=== PATIENT | female | born 1935 | race Caucasian/White ===

== ENCOUNTER → 2016-10-31 | Outpatient (CLI) | payer OTHER, MEDICARE ==
[~2016-10-31] MED LIST: BACTRIM DS TAB1 EACH PO; CIPROFLOXACIN500 M1 PO; CIPROFLOXACIN500 M3 PO; FLAGYL500 MG PO; GLIPIZIDE 5 MG T5 MG PO; GLIPIZIDE ER5 MG PO; GLUCOTROL5 MG PO; IMODIUM A-D1 MG/5 ML PO; IMODIUM ADVANC1 EAC1; LEVOXYL50 MCG PO; LISINOPRIL10 MG PO; LISINOPRIL20 MG PO; LOVASTAT40 PO; NORCO 5-325 TA1 EACH; NORCO 5-325 TA1 EACH PO
== END ==
LOC: ULTRA 12:33
DX: M79.89 Other specified soft tissue disorders (principal); M79.604 Pain in right leg

== ENCOUNTER → 2017-03-20 | Outpatient (CLI) | payer OTHER, MEDICARE | LOC: CAT 09:48 | DX: J47.9 Bronchiectasis, uncomplicated (principal); J84.10 Pulmonary fibrosis, unspecified; R06.00 Dyspnea, unspecified; R06.9 Unspecified abnormalities of breathing ==

== ENCOUNTER → 2017-11-06 | Outpatient (CLI) | payer OTHER, MEDICARE ==
[~2017-11-06] MED LIST changes: +ADVAIR HFA 230M12 GM INH; +ALBUTEROL2.5 MG/0.5 INH; +AMARYL4 MG PO; +AZITHROMYCIN 2250 MG PO; +B-12500 MCG PO; +BREO ELLIPTA 11 EACH INH; +CARDIZEM CD120 MG PO; +CEFUROXIME250 MG PO; +COLACE100 MG PO; +COUMADIN 2 MG TA2 M1 PO; +DEMADEX20 MG PO; +DOXYCYCLINE HYC50 MG PO; +ELIQUIS2.5 MG PO; +FOLIC ACID 1 MG1 MG PO; +IRON325 PO; +K-DUR10 MEQ PO; +KEFLEX500 M1 PO; +LASIX 20 MG TAB20 MG PO; +LASIX 40 MG TAB40 M1 PO; +LASIX 40 MG TAB40 M2 PO; +LIPITOR10 MG PO; +MELATONIN5 M1 PO; +MULTIVITAMINS1 EAC7 PO; +PREDNISONE 10 M10 MG PO; +PROTONIX40 M1 PO; +SPIRONOLACTONE25 M1 PO; +TRAMADOL 50 MG50 MG PO; +TYLENOL325 MG PO
== END ==
LOC: SLEEPLAB 10-30 10:15
DX: G47.33 Obstructive sleep apnea (adult) (pediatric) (principal); I49.9 Cardiac arrhythmia, unspecified

== ENCOUNTER → 2017-12-31 | Outpatient (CLI) | payer OTHER, MEDICARE | LOC: CAT 08:05 | DX: J84.10 Pulmonary fibrosis, unspecified (principal); K80.80 Other cholelithiasis without obstruction ==

== ENCOUNTER → 2018-01-09 | Outpatient (CLI) | payer OTHER, MEDICARE ==
[~2018-01-09] MED LIST changes: -ADVAIR HFA 230M12 GM INH; -ALBUTEROL2.5 MG/0.5 INH; -AMARYL4 MG PO; -AZITHROMYCIN 2250 MG PO; -B-12500 MCG PO; -BREO ELLIPTA 11 EACH INH; -CARDIZEM CD120 MG PO; -CEFUROXIME250 MG PO; -COLACE100 MG PO; -COUMADIN 2 MG TA2 M1 PO; -DEMADEX20 MG PO; -DOXYCYCLINE HYC50 MG PO; -ELIQUIS2.5 MG PO; -FOLIC ACID 1 MG1 MG PO; -IRON325 PO; -K-DUR10 MEQ PO; -KEFLEX500 M1 PO; -LASIX 20 MG TAB20 MG PO; -LASIX 40 MG TAB40 M1 PO; -LASIX 40 MG TAB40 M2 PO; -LIPITOR10 MG PO; -MELATONIN5 M1 PO; -MULTIVITAMINS1 EAC7 PO; -PREDNISONE 10 M10 MG PO; -PROTONIX40 M1 PO; -SPIRONOLACTONE25 M1 PO; -TRAMADOL 50 MG50 MG PO; -TYLENOL325 MG PO
--- NOTE | ~2018-01-09 | 2DMMODE ---
[facility] [place] [address] 2 D/M-MODE ECHOCARDIOGRAM Name: MARTHAMANPREET Blanco Room #: REG [facility]#: [id number] Admission: 01/09/18 Attend Phys: Suman Joseph Discharge: Date of : 31 Date of Service: 01/09/18 1119 Report #: [id number] THIS REPORT FOR: //name// APPROVED REPORT Study performed: 01/09/2018 09:16:00 EXAM: Comprehensive 2D, Doppler, and color-flow Echocardiogram Patient Location: Out-Patient Status: routine BSA: 1.93 HR: 60 bpm BP: 165/83 mmHg Rhythm: Pacemaker Other Information Study Quality: Adequate Indications Dyspnea Hx: DM, HLD 2D Dimensions RVDd: 33.48 mm LVEF(%): 61.52 (>50%) IVSd: 12.31 (7-11mm) LVOT Diam: 20.52 (18-24mm) LVDd: 43.78 mm PWd: 12.28 (7-11mm) Ascending Ao: 34.24 (22-36mm) LVDs: 29.41 (25-40mm) Aortic Root: 32.92 mm IVC: 29.00 mm Hollingsworth's LVEF: 61.52 % Volumes Left Atrial Volume (Systole) Single Plane 4CH: 75.60 mL Single Plane 2CH: 68.59 mL LA ESV Index: 41.00 mL/m2 Aortic Valve AoV Peak Agus.: 1.49 m/s AO Peak Gr.: 8.91 mmHg LVOT Max P.81 mmHg LVOT Max V: 0.98 m/s NENITA Vmax: 2.16 cm2 AI Vmax: 4.59 m/s AI [place]: 2.42 m/s2 AI PHT: 550.00 ms [facility] [address] 2 D/M-MODE ECHOCARDIOGRAM Name: MANPREET THOMAS Room #: [facility]#: [id number] Admission: 01/09/18 Attend Phys: Suman Joseph Discharge: Date of : 31 Date of Service: 01/09/18 1119 Report #: [id number] Mitral Valve E/A Ratio: 2.8 MV Decel. Time: 193.97 ms MV E Max Agus.: 1.01 m/s MV A Agus.: 0.36 m/s MV PHT: 56.25 ms IVRT: 87.66 ms Pulmonary Valve PV Peak Agus.: 0.88 m/s PV Peak Gr.: 3.12 mmHg Tricuspid Valve TR Peak Agus.: 3.85 m/s RAP Estimate: 10.00 mmHg TR Peak Gr.: 59.26 mmHg PA Pressure: 69.00 mmHg Left Ventricle The left ventricle is normal size. Mild concentric left ventricular hypertrophy. The left ventricular systolic function is normal. LVEF is 55-60%. The diastolic function is abnormal. Right Ventricle The right ventricle is normal size. The right ventricular systolic function is normal. Pacemaker lead is present in the right ventricle. Atria Left atrium is severely dilated. Right atrium is dilated. A pacemaker is seen in the right atrium consistent with history. Aortic Valve The Aortic valve is sclerotic. Mild aortic regurgitation. There is no aortic valvular stenosis. Mitral Valve There is mitral annular calcification. Mitral valve leaflets are thickened and calcified. Mild to moderate mitral regurgitation. No evidence of mitral valve stenosis. Tricuspid Valve The tricuspid valve is normal in structure. Moderate to severe tricuspid regurgitation. Estimated PAP 69 mmHg. Moderate to severe pulmonary hypertension. Pulmonic Valve The pulmonary valve is normal in structure. Trace pulmonic [facility] [address] [place] [address] 2 D/M-MODE ECHOCARDIOGRAM Name: MANPREET THOMAS [id number] Admission: 01/09/18 Attend Phys: Suman Joseph Discharge: Date of : 31 Date of Service: 01/09/18 1119 Report #: [id number] regurgitation. Great Vessels The aortic root is normal in size. The ascending aorta is normal in size. IVC is dilated and collapses 50% with inspiration. Pericardium There is no pericardial effusion. <Conclusion> The left ventricle is normal size. LVEF is 55-60%. Left atrium is severely dilated. Pacemaker lead is present in the right ventricle. Right atrium is dilated. A pacemaker is seen in the right atrium consistent with history. The Aortic valve is sclerotic. Mild aortic regurgitation. There is mitral annular calcification. Mitral valve leaflets are thickened and calcified. Mild to moderate mitral regurgitation. The tricuspid valve is normal in structure. Moderate to severe tricuspid regurgitation. Estimated PAP 69 mmHg. Moderate to severe pulmonary hypertension. The pulmonary valve is normal in structure. Trace pulmonic regurgitation. There is no pericardial effusion. <ELECTRONICALLY SIGNED> By: Toni Mchugh MD 01/09/18 1119 1119 1119 Toni Mchugh MD /INF
== END ==
LOC: ULTRA 09:00 → CV 09:00
DX: I08.3 Combined rheumatic disorders of mitral, aortic and tricuspid valves (principal); M71.21 Synovial cyst of popliteal space [Baker], right knee; I82.4Y3 Acute embolism and thrombosis of unspecified deep veins of proximal lower extremity, bilateral; R06.02 Shortness of breath; M79.89 Other specified soft tissue disorders; E11.9 Type 2 diabetes mellitus without complications; E78.5 Hyperlipidemia, unspecified

== ENCOUNTER → 2018-01-10 | Outpatient (CLI) | payer OTHER, MEDICARE | LOC: NUC 10:55 | DX: I82.4Y3 Acute embolism and thrombosis of unspecified deep veins of proximal lower extremity, bilateral (principal); R79.89 Other specified abnormal findings of blood chemistry; R06.02 Shortness of breath ==

== ENCOUNTER 2018-02-05 15:17 | Inpatient (IN) | payer OTHER, MEDICARE ==
[~2018-02-05] VITALS: Ht 160 cm; Wt 90.7 kg
--- NOTE | ~2018-02-05 | HC ---
[facility] [place] [address] CONSULTATION Name: MANPREET THOMAS Room #: 407-P ADM IN M.R.#: [id number] Admission: 02/05/18 Attend Phys: Manfred Bran MD Discharge: Date of : 33 Report #: [id number] THIS REPORT FOR: //name// CC: Manfred Marques MD DATE OF SERVICE: 02/06/2018 TYPE OF REPORT: Cardiology consultation. HISTORY OF PRESENT ILLNESS: The patient is an 82-year-old single white female who I was asked to see in the hospital today after she complained of shortness of breath. The patient has an extensive past medical history. The patient has a long history of hypertension, hyperlipidemia and diabetes. She was a previous smoker. The patient has a history of symptomatic bradycardia and had a pacemaker inserted by Dr. Darnell back in 2011. Lately, she has been followed by my partner, Dr. Armstrong. Nuclear stress test back in 2011 showed no evidence of ischemia. The patient has a history of pulmonary fibrosis and has been followed by Dr. Ratliff. She is on home oxygen. Recently, the patient had increasing shortness of breath and edema. She was sent to the Emergency Room yesterday with increasing shortness of breath and edema. She had seen Dr. Marques earlier today who sent her to the hospital. She was admitted for further evaluation and treatment. She denies any recent fever or cough. She does have occasional chest heaviness. She notes occasional episodes where her heart race, but she has had no syncope. MEDICATIONS: Consist of aspirin, glipizide, Synthroid, lisinopril, lovastatin and aspirin 81 mg a day. ALLERGIES: She has a previous intolerance to MOBIC. FAMILY HISTORY: Her brother had heart disease. SOCIAL HISTORY: She is , lives in [place], [place]. Quit smoking years ago, rarely drinks alcohol. REVIEW OF SYSTEMS: She had a previous right carotid endarterectomy and is followed by Dr. Thompson. However, she states that followup Doppler showed the right carotid was occluded. She has a history of pulmonary fibrosis and sees Dr. Ratliff. She has had pulmonary hypertension. No history of peptic ulcer disease. She has a history of breast cancer, had a mastectomy followed by radiation therapy and chemotherapy years ago. She has had previous hemicolectomy for diverticular disease. She has no chronic skin condition. No psychiatric illness. [facility] [address] [place] [address] CONSULTATION Name: MANPREET THOMAS Room #: 407-P [facility] IN [facility].#: [id number] Admission: 02/05/18 Attend Phys: Manfred Bran MD Discharge: Date of : 33 Report #: [id number] PHYSICAL EXAMINATION: GENERAL: Revealed an elderly female who appeared in no acute distress. VITAL SIGNS: Blood pressure is 140/90, pulse 70 and she is afebrile. HEENT: She was anicteric. Conjunctivae pink. Mucous membranes moist. NECK: Veins do not appear distended. No carotid bruits. Neck supple. CHEST: coarse breath sounds bilaterally. CARDIOVASCULAR: Regular rhythm, grade 2 systolic ejection murmur. ABDOMEN: Soft. EXTREMITIES: Had 1+ edema below the mid tibial area. Dorsalis pedis pulse 1+ bilaterally. SKIN: Cool and dry. NEUROLOGICAL: Nonfocal. LYMPHATIC: No adenopathy. MUSCULOSKELETAL: No joint effusion. DIAGNOSTIC DATA: Her ECG last night in the Emergency Room appears to show atrial fibrillation with occasional ventricular paced beat and nonspecific T-wave changes. Previous ECG from 2011 showed an AV sequentially paced rhythm. Her workup so far; she had an echocardiogram today that showed an ejection fraction of 60; left ventricular hypertrophy; biatrial enlargement; mild aortic, moderate mitral and moderate tricuspid insufficiency and pulmonary artery pressure 65 mmHg. Workup, she had a chest x-ray on admission that showed cardiomegaly, elevated right hemidiaphragm and bilateral interstitial lung markings are increased. Venous duplex scan of her legs showed no DVT. She had a previous CT scan of the head without contrast back in 2011 that showed atrophy. Her last CT scan of the chest using high resolution was done in December that showed evidence of interstitial fibrotic changes and large gallstone. LABORATORY DATA: Her lab work: Her sodium was 134, potassium 4.3 and creatinine 1.2. Liver function studies were normal. Troponin 0.04. Her white blood cell count 6.7 and hemoglobin 11.5. IMPRESSION AND RECOMMENDATIONS: 1. Atrial fibrillation. Rate controlled. I would not recommend attempts at cardioversion. I would recommend anticoagulation with either a new oral anticoagulant or warfarin. 2. Sick sinus syndrome. The patient predominantly ventricular paced at this time. 3. Pulmonary fibrosis. The patient will be followed by Pulmonary. 4. Cor pulmonale with dilated right heart and pulmonary hypertension. I would recommend Lasix. 5. Hypertension. The patient has been on an angiotensin-converting enzyme inhibitor. 6. Diabetes. 7. Hyperlipidemia. The patient is on a statin drug. 8. Occluded right carotid artery. Asymptomatic at this time. [facility] [address] [place] [address] CONSULTATION Name: MANPREET THOMAS Room #: 407-P ADM IN M.R.#: [id number] Admission: 02/05/18 Attend Phys: Manfred Bran MD Discharge: Date of : 33 Report #: [id number] 9. History of breast cancer with previous radiation therapy. 10. Previous placement of a dual-chamber pacemaker. I would consider reprogramming the pacemaker to a single-chamber mode. <ELECTRONICALLY SIGNED> By: Valentin Stern MD, FACC 02/07/18 0831 1643 0022 Valentin Stern MD, FACC /nt
--- NOTE | ~2018-02-05 | 2DMMODE ---
[facility] [address] [place] [address] 2 D/M-MODE ECHOCARDIOGRAM Name: MARTHAMANPREET J Room #: 407-P ADM IN M.R.#: [id number] Admission: 02/05/18 Attend Phys: Manfred Bran MD Discharge: Date of : 31 Date of Service: 02/06/18 1044 Report #: [id number] THIS REPORT FOR: //name// APPROVED REPORT Study performed: 02/06/2018 09:05:38 EXAM: Comprehensive 2D, Doppler, and color-flow Echocardiogram Patient Location: Echo lab Room #: [facility] Status: routine BSA: 1.91 HR: 62 bpm BP: 175/78 mmHg Other Information Study Quality: Adequate Indications Dyspnea Pacemaker 2D Dimensions RVDd: 39.44 mm LVEF(%): 65.02 (>50%) IVSd: 11.48 (7-11mm) LVOT Diam: 22.33 (18-24mm) LVDd: 42.16 mm PWd: 11.18 (7-11mm) Ascending Ao: 31.22 (22-36mm) LVDs: 27.29 (25-40mm) Aortic Root: 31.59 mm IVC: 28.00 mm Hollingsworth's LVEF: 65.02 % Volumes Left Atrial Volume (Systole) Single Plane 4CH: 111.10 mL Single Plane 2CH: 74.34 mL LA ESV Index: 52.00 mL/m2 Aortic Valve AoV Peak Agus.: 1.39 m/s AO Peak Gr.: 7.77 mmHg LVOT Max P.69 mmHg LVOT Max V: 0.96 m/s NENITA Vmax: 2.70 cm2 AI Vmax: 3.34 m/s AI [place]: 1.45 m/s2 AI PHT: 670.66 ms [facility] [place] [address] 2 D/M-MODE ECHOCARDIOGRAM Name: MARTHAMANPREET Reji Room #: 407-P [facility] IN M.R.#: [id number] Admission: 02/05/18 Attend Phys: Manfred Bran MD Discharge: Date of : 33 Date of Service: 02/06/18 1044 Report #: [id number] Mitral Valve MV Decel. Time: 158.62 ms MV E Max Agus.: 1.05 m/s Pulmonary Valve PV Peak Agus.: 0.95 m/s PV Peak Gr.: 3.62 mmHg Tricuspid Valve TR Peak Agus.: 3.53 m/s TR Peak Gr.: 49.85 mmHg PA Pressure: 65.00 mmHg Left Ventricle The left ventricle is normal size. There is normal LV segmental wall motion. Mild concentric left ventricular hypertrophy. The left ventricular systolic function is normal. The left ventricular ejection fraction is within the normal range. LVEF is 60-65%. This study is not technically sufficient to allow evaluation of the LV diastolic function. Right Ventricle Right ventricle is mildly dilated. Right ventricle is mildly hypokinetic. Atria Left atrium is moderately dilated. Right atrium is moderately dilated. Aortic Valve The aortic valve is normal in structure. Aortic valve is calcified. Mild aortic regurgitation. There is no aortic valvular stenosis. Mitral Valve The mitral valve is normal in structure. Mild to moderate mitral regurgitation. No evidence of mitral valve stenosis. Tricuspid Valve The tricuspid valve is normal in structure. There is moderate to severe tricuspid regurgitation. Estimated PAP 65 mmHg. There is moderate pulmonary hypertension. Pulmonic Valve The pulmonary valve is normal in structure. Trace pulmonic regurgitation. [facility] [address] [place] [address] 2 D/M-MODE ECHOCARDIOGRAM Name: MANPREET THOMAS Reji Room #: 407-P [facility] IN ..#: [id number] Admission: 02/05/18 Attend Phys: Manfred Bran MD Discharge: Date of : 31 Date of Service: 02/06/18 1044 Report #: [id number] Great Vessels The aortic root is normal in size. The inferior vena cava is dilated with no inspiratory collapse. Pericardium There is no pericardial effusion. <Conclusion> Mild concentric left ventricular hypertrophy. LVEF is 60-65%. Right ventricle is mildly dilated. Left atrium is moderately dilated. Right atrium is moderately dilated. Mild aortic regurgitation. Mild to moderate mitral regurgitation. There is moderate to severe tricuspid regurgitation. Estimated PAP 65 mmHg. There is moderate pulmonary hypertension. <ELECTRONICALLY SIGNED> By: Valentin Stern MD, [facility] 02/06/18 1044 1044 1044 Valentin Stern MD, FACC /INF
--- NOTE | ~2018-02-05 | EKG ---
[facility] [place] [address] ELECTROCARDIOGRAM REPORT Name: MARTHAMANPREET [id number] Admission: 02/05/18 Attend Phys: Discharge: Date of : 33 Report #: [id number] THIS REPORT FOR: //name// [facility] ED Test Date: 2018-02-05 Test Time: 16:46:06 Pat Name: MANPREET THOMAS Department: Room: Gender: F Intelligence Operations: MZOOK : 1935 Requested By: Rafaela Salinas Order Number: [id number] MD: Eliot Vivar Measurements Intervals [place] Rate: 60 P: DE: QRS: -35 QRSD: 113 T: 229 QT: 472 QTc: 472 Interpretive Statements Afib/flut and V-paced complexes Borderline IVCD with LAD Borderline low voltage, extremity leads Nonspecific ST and T wave abnormality Compared to ECG 05/07/2012 12:20:59 AV dual-paced complex(es) or rhythm no longer present Electronically Signed On 02-05-2018 17:12:31 CDT by Eliot Vivar [email or web address] <ELECTRONICALLY SIGNED> By: Eliot Vivar MD, [facility] 02/05/18 1712 1646 1646 Eliot Vivar MD, [facility] /EPI
[2018-02-05 15:19] VITALS: BP 151/61
[2018-02-05 17:23] LABS: HEMATOCRIT 34.3 % (37.0-47.0); HEMOGLOBIN 11.3 gm/dL (12.0-15.0); MCH 31.2 pg (26.0-34.0); MCV 94.5 fL (80.0-100.0); PLATELET COUNT 204 thou/uL (150-400); RBC 3.63 mil/uL (4.20-5.00); RDW 15.7 % (10.5-14.5); WBC 6.6 thou/uL (4.0-11.0)
[2018-02-05 17:31] LABS: ANION GAP 13 mmol/L (7-16); BUN 23 mg/dL (7-18); CALCIUM 9.3 mg/dL (8.5-10.1); CHLORIDE 101 mmol/L (98-107); CO2 22 mmol/L (21-32); CREATININE 1.4 mg/dL (0.6-1.0); GLUCOSE 135 mg/dL (74-106); POTASSIUM 4.3 mmol/L (3.5-5.1); SODIUM 136 mmol/L (136-145)
[2018-02-05 17:40] LABS: TROPONIN-I < 0.04 ng/mL (<0.06)
[2018-02-05 18:03] LABS: ANISOCYTOSIS 1+; OVALOCYTES OCCASIONAL
[2018-02-05 19:31] VITALS: BP 158/74
[2018-02-05] MEDS ORDERED: BREO ELLIPTA 11 EACH INH (19:37)
[2018-02-05 19:54] LABS: ALBUMIN 3.2 g/dL (3.4-5.0); DIRECT BILIRUBIN 0.3 mg/dL (<0.1-0.3); TOTAL BILIRUBIN 0.8 mg/dL (<0.1-1.0); TOTAL PROTEIN 6.7 g/dL (6.4-8.2)
[2018-02-05 20:02] LABS: D-DIMER 2.38 ug/mLFEU (0.19-0.50); INR 1.1; PROTIME 10.8 Seconds (9.3-11.4)
[2018-02-05 21:11] VITALS: BP 154/90
[2018-02-05 21:57] LABS: BE(vivo) 0.2 mmol/L (-2 to +3); HCO3 22.9 mmol/L (22.0-26.0); PCO2 31.1 mmHg (35.0-45.0); PO2 97.4 mmHg (80.0-100.0); pH 7.485 (7.360-7.450); sO2 97.9 % (92.0-98.0)
[2018-02-06] VITALS (7 sets, daily range): BP systolic 123–175; BP diastolic 49–78
[2018-02-06 05:29] LABS: ABSOLUTE NEUTROPHILS 6.2 thou/uL (1.4-8.2); BASOPHILS 0.3 % (0.0-2.0); EOSINOPHILS 0.3 % (0.0-3.0); HEMATOCRIT 35.6 % (37.0-47.0); HEMOGLOBIN 11.5 gm/dL (12.0-15.0); LYMPHOCYTES 4.7 % (24.0-44.0); MCH 30.9 pg (26.0-34.0); MCHC 32.4 g/dL (28.0-37.0); MCV 95.2 fL (80.0-100.0); MONOCYTES 2.5 % (1.0-8.0); PLATELET COUNT 193 thou/uL (150-400); POLYS 92.2 % (36.0-66.0); RBC 3.73 mil/uL (4.20-5.00); RDW 16.1 % (10.5-14.5); WBC 6.7 thou/uL (4.0-11.0)
[2018-02-06 05:44] LABS: CALCIUM 9.3 mg/dL (8.5-10.1); CREATININE 1.2 mg/dL (0.6-1.0); POTASSIUM 4.3 mmol/L (3.5-5.1)
[2018-02-07 05:28] LABS: ABSOLUTE NEUTROPHILS 7.5 thou/uL (1.4-8.2); BASOPHILS 0.1 % (0.0-2.0); HEMOGLOBIN 11.6 gm/dL (12.0-15.0); LYMPHOCYTES 4.6 % (24.0-44.0); MCH 30.5 pg (26.0-34.0); MCHC 32.3 g/dL (28.0-37.0); MCV 94.6 fL (80.0-100.0); MONOCYTES 5.5 % (1.0-8.0); PLATELET COUNT 241 thou/uL (150-400); POLYS 89.8 % (36.0-66.0); RDW 15.9 % (10.5-14.5); WBC 8.4 thou/uL (4.0-11.0)
[2018-02-07 05:33] VITALS: BP 146/63
[2018-02-07 05:39] LABS: CALCIUM 9.3 mg/dL (8.5-10.1); CREATININE 1.2 mg/dL (0.6-1.0)
[2018-02-07 05:52] LABS: CHOLESTEROL 170 mg/dL (<200); HDL CHOLESTEROL 104 mg/dL (>40); LDL CHOLESTEROL 55 mg/dL (<100); TC:HDL 1.6 Ratio (Not establshd); TRIGLYCERIDE 58 mg/dL (<150); VLDL 12 mg/dL (<40)
[2018-02-07 05:58] LABS: SERUM ASSESSMENT Clear
[2018-02-07 07:42] VITALS: BP 149/60
[2018-02-07 16:56] VITALS: BP 104/43
[2018-02-07 19:41] VITALS: BP 136/52
[2018-02-07 21:09] LABS: CYCLIC CITRULLINATED PEPTIDE 14 units (0-19)
[2018-02-08 04:08] VITALS: BP 152/75
[2018-02-08 04:12] LABS: ANGIOTENSIN CONVERTNG ENZ < 15 U/L (14-82)
[2018-02-08 05:57] LABS: CALCIUM 9.1 mg/dL (8.5-10.1); CREATININE 1.2 mg/dL (0.6-1.0); POTASSIUM 5.3 mmol/L (3.5-5.1)
[2018-02-08 06:01] LABS: INR 1.1; PROTIME 10.9 Seconds (9.3-11.4)
[2018-02-08 08:52] VITALS: BP 141/58
[2018-02-08] MEDS ORDERED: CEFUROXIME250 MG PO (09:04)
[2018-02-08] MEDS ORDERED: AZITHROMYCIN 2250 MG PO (09:04)
[2018-02-08] MEDS ORDERED: LASIX 40 MG TAB40 M1 PO (09:05)
[2018-02-08] MEDS ORDERED: COUMADIN 2 MG TA2 M1 PO (09:05)
[2018-02-08 09:12] LABS: GLOMERULR BASEM MEMBRN AB 3 units (0-20)
[2018-02-08 10:07] LABS: ANTI-DNA SCREEN <1 IU/mL (0-9); ANTI-RNP <0.2 AI (0.0-0.9)
[2018-02-08 17:38] VITALS: BP 122/54
[2018-02-08 20:00] VITALS: BP 138/51
[2018-02-09 07:53] LABS: PROTIME 10.7 Seconds (9.3-11.4)
[2018-02-09 07:54] VITALS: BP 147/73
[2018-02-09 11:03] VITALS: BP 147/73
== END 2018-02-09 14:53 | disposition home health service (06) | DRG 291 ==
LOC: ER 15:17 → 4N 19:04 → EROBS 19:04 → 4N 19:43 → SICU 02-08 18:31
PROVIDERS: Emergency Medicine; Family Medicine; Hospitalist; Internal Medicine Cardiovascular Disease; Internal Medicine Pulmonary Disease
DX: I50.33 Acute on chronic diastolic (congestive) heart failure (principal); J96.01 Acute respiratory failure with hypoxia; I48.91 Unspecified atrial fibrillation; I49.5 Sick sinus syndrome; J84.10 Pulmonary fibrosis, unspecified; I27.81 Cor pulmonale (chronic); I27.20 Pulmonary hypertension, unspecified; E78.5 Hyperlipidemia, unspecified; I65.21 Occlusion and stenosis of right carotid artery; G47.33 Obstructive sleep apnea (adult) (pediatric); Z60.2 Problems related to living alone; E11.65 Type 2 diabetes mellitus with hyperglycemia; Z79.899 Other long term (current) drug therapy; Z95.0 Presence of cardiac pacemaker; Z98.42 Cataract extraction status, left eye; Z85.3 Personal history of malignant neoplasm of breast; Z90.11 Acquired absence of right breast and nipple; Z88.8 Allergy status to other drugs, medicaments and biological substances; Z82.49 Family history of ischemic heart disease and other diseases of the circulatory system; Z92.3 Personal history of irradiation; Z87.891 Personal history of nicotine dependence
CPT/HCPCS: 10790; 15002

== ENCOUNTER 2018-05-27 11:17 | Emergency (ER) | payer OTHER, MEDICARE ==
[~2018-05-27] VITALS: Ht 160 cm; Wt 70.3 kg
--- NOTE | ~2018-05-27 | EKG ---
[place] [address] [facility] [place] [address] ELECTROCARDIOGRAM REPORT Name: MANPREET THOMAS Room #: [facility]#: [id number] Admission: 05/27/18 Attend Phys: Discharge: 05/27/18 Date of : 33 Report #: [id number] THIS REPORT FOR: //name// [facility] ED Test Date: 2018-05-27 Test Time: 12:15:12 Pat Name: MANPREET THOMAS Department: Room: Gender: F First Officer And Flight Instructor: sia tijerina : 1935 Requested By: Bulmaro Hines Order Number: [id number] MD: Eliot Vivar Measurements Intervals [place] Rate: 60 P: LA: QRS: 1 QRSD: 125 T: -28 QT: 452 QTc: 452 Interpretive Statements Afib/flut and V-paced complexes Intermittent demand ventricular pacing Compared to ECG 05/04/2018 12:17:50 No significant change was found Electronically Signed On 05-28-2018 8:05:22 CDT by Eliot Vivar [email or web address] <ELECTRONICALLY SIGNED> By: Eliot Vivar MD, [facility] 05/28/18 0805 1215 14 Elito Vivar MD, [facility] /EPI
[~2018-05-27 11:17] MED LIST changes: +ALBUTEROL2.5 MG/0.5 INH; +AZITHROMYCIN 2250 MG PO; +B-12500 MCG PO; +BREO ELLIPTA 11 EACH INH; +CARDIZEM CD120 MG PO; +CEFUROXIME250 MG PO; +COUMADIN 2 MG TA2 M1 PO; +DOXYCYCLINE HYC50 MG PO; +ELIQUIS2.5 MG PO; +LASIX 20 MG TAB20 MG PO; +LASIX 40 MG TAB40 M1 PO; +LASIX 40 MG TAB40 M2 PO; +PREDNISONE 10 M10 MG PO
[2018-05-27] MEDS ORDERED: K-DUR10 MEQ PO (11:38)
[2018-05-27] MEDS ORDERED: DEMADEX20 MG PO (11:39)
[2018-05-27] MEDS ORDERED: MELATONIN5 M1 PO (11:40)
[2018-05-27] MEDS ORDERED: LIPITOR10 MG PO (11:41)
[2018-05-27] MEDS ORDERED: ADVAIR HFA 230M12 GM INH (11:42)
[2018-05-27 12:19] LABS: ABSOLUTE NEUTROPHILS 8.8 thou/uL (1.4-8.2); BASOPHILS 0.2 % (0.0-2.0); EOSINOPHILS 0.6 % (0.0-3.0); HEMATOCRIT 32.5 % (37.0-47.0); HEMOGLOBIN 10.9 gm/dL (12.0-15.0); LYMPHOCYTES 2.5 % (24.0-44.0); MCH 33.1 pg (26.0-34.0); MCHC 33.7 g/dL (28.0-37.0); MCV 98.2 fL (80.0-100.0); MONOCYTES 5.4 % (1.0-8.0); PLATELET COUNT 188 thou/uL (150-400); POLYS 91.3 % (36.0-66.0); RDW 18.9 % (10.5-14.5); WBC 9.6 thou/uL (4.0-11.0)
[2018-05-27 12:25] LABS: APTT 27.4 Seconds (24.5-32.8); INR 1.1; PROTIME 10.9 Seconds (9.3-11.4)
[2018-05-27 12:59] LABS: ANISOCYTOSIS SLIGHT; OVALOCYTES FEW; POIKILOCYTOSIS SLIGHT; TEARDROPS OCCASIONAL
[2018-05-27 13:07] LABS: CALCIUM 9.3 mg/dL (8.5-10.1); CREATININE 2.1 mg/dL (0.6-1.0); POTASSIUM 3.6 mmol/L (3.5-5.1)
== END 2018-05-27 14:07 | disposition home or self-care (01) ==
LOC: ER 11:17
PROVIDERS: Physician Assistant
DX: T45.511A Poisoning by anticoagulants, accidental (unintentional), initial encounter (principal); Y92.89 Other specified places as the place of occurrence of the external cause; N17.9 Acute kidney failure, unspecified; I48.91 Unspecified atrial fibrillation; I50.9 Heart failure, unspecified; E11.9 Type 2 diabetes mellitus without complications; I95.9 Hypotension, unspecified; Z88.8 Allergy status to other drugs, medicaments and biological substances; Z95.0 Presence of cardiac pacemaker; Z85.3 Personal history of malignant neoplasm of breast; Z90.11 Acquired absence of right breast and nipple

== ENCOUNTER 2018-07-30 17:10 | Inpatient (IN) | payer OTHER, MEDICARE ==
[~2018-07-30] VITALS: Ht 152.4 cm; Wt 72.1 kg
--- NOTE | ~2018-07-30 | HC ---
[facility] [place] [address] CONSULTATION Name: MANPREET THOMAS Room #: 453-P [facility] IN ..#: [id number] Admission: 07/30/18 Attend Phys: Juwan Akhtar MD Discharge: 08/02/18 Date of : 33 Report #: [id number] THIS REPORT FOR: //name// CC: Mari Marques MD Patient's Chart Juwan Akhtar DATE OF SERVICE: 07/31/2018 CARDIOLOGY CONSULTATION PRIMARY CARE PHYSICIAN: Mari Marques MD HISTORY OF PRESENT ILLNESS: The patient is an 82-year-old single white female who I was asked to see in the hospital today after she complained of being short of breath. The patient has an extensive past medical history. She has a long history of atrial fibrillation, but apparently has never been cardioverted. She has been chronically anticoagulated. Dr. Darnell actually implanted a permanent dual chamber Medtronic pacemaker back in 2011 when she apparently presented with high-degree AV block. The patient has been followed by my partner, Dr. Armstrong. Her most recent cardiac workup included an echocardiogram in January of this year that showed ejection fraction 60%, left ventricular hypertrophy, biatrial enlargement, moderate mitral regurgitation, moderate tricuspid insufficiency with severe pulmonary hypertension. She actually had a nuclear stress test back in 2011 that showed a normal ejection fraction and no evidence of ischemia. The patient states recently she has been fatigued and short of breath. She does have home oxygen. She has noticed edema. She has had weight gain. She denied any chest pain, palpitations, syncope. She does fall occasionally and uses a walker. Because of these symptoms, she was brought to the Emergency Room last night. She is noted to be anemic and required transfusion. She denied a history of anemia or bleeding problems. PAST MEDICAL HISTORY: Otherwise significant for hemicolectomy for benign disease. She has had a lumpectomy for breast cancer. She had a skin cancer removed in the past. She has had knee surgery. She has a history of hypertension. She has sleep apnea. MEDICATIONS AT HOME: Consist of Lipitor, diltiazem, glipizide, torsemide, Eliquis. ALLERGIES: SHE HAS A PREVIOUS INTOLERANCE TO MOBIC. FAMILY HISTORY: Heart disease runs in the family including diabetes. SOCIAL HISTORY: She is . Lives in , [place] by herself. She quit [address] [address] CONSULTATION Name: MANPREET THOMAS Room #: 453-P [facility]#: [id number] Admission: 07/30/18 Attend Phys: Juwan Akhtar MD Discharge: 08/02/18 Date of : 33 Report #: [id number] smoking years ago. No alcohol abuse. REVIEW OF SYSTEMS: She has had no history of stroke, asthma, peptic ulcer disease, liver disease, kidney disease, psychiatric illness. PHYSICAL EXAMINATION: GENERAL: Revealed an elderly female lying in bed. She appeared in no acute distress. VITAL SIGNS: She had a blood pressure 110/60, pulse is 60. HEENT: She was anicteric. Conjunctivae pale. Mucous membranes appear dry. NECK: Veins do not appear distended. CHEST: Revealed crackles in the bases. CARDIOVASCULAR: Regular rate and rhythm, grade 2 systolic ejection murmur. ABDOMEN: Obese. EXTREMITIES: Had pitting edema. SKIN: Cool and dry. NEUROLOGIC: Nonfocal. On the monitor, the patient appears to be in a ventricular paced rhythm. Her workup in the Emergency Room yesterday, she had a portable chest x-ray that showed cardiomegaly, poor inspiration, no pulmonary edema. She had venous duplex scan performed of her legs in April of this year that showed no DVT. LABORATORY DATA: Sodium 138, creatinine 1.4. Her troponin is 0.06. Her white blood cell count was 11.8; hemoglobin yesterday was 7, this morning at 6.4; hematocrit 20.2. She had iron study of 21, TIBC 379, percent saturation was only 5%. TSH 1.9. Urinalysis is negative for protein. IMPRESSION AND RECOMMENDATIONS: 1. Anemia. Consistent with iron deficiency. I would hold Eliquis at this time. I will consider GI workup. 2. Shortness of breath, fatigue. Suspect secondary to anemia. 3. Atrial fibrillation. I would hold anticoagulation at this time. 4. Previous pacemaker. Pacemaker appears to be functioning normally. 5. Edema. Suspect venous insufficiency. 6. Hypertension. The patient is on a calcium alison. 7. History of breast cancer. 8. Chronic kidney disease. <ELECTRONICALLY SIGNED> By: Valentin Stern MD, FACC 08/07/18 1512 0758 182 Valentin Stern MD, FACC /nt
--- NOTE | ~2018-07-30 | EKG ---
[address] [employer] [place] [address] ELECTROCARDIOGRAM REPORT Name: MARTHAMANPREET Room #: 453-P ADM IN M.R.#: [id number] Admission: 07/30/18 Attend Phys: Juwan Akhtar MD Discharge: Date of : 33 Report #: [id number] THIS REPORT FOR: //name// [facility] ED Test Date: 2018-07-30 Test Time: 17:51:36 Pat Name: MANPREET THOMAS Department: Room: [facility] Gender: F Animal Rehabilitator: ELEONORA : 1935 Requested By: Rafaela Salinas Order Number: [id number] MD: Eliot Vivar Measurements Intervals [place] Rate: 60 P: [place]: QRS: -66 QRSD: 151 T: 94 QT: 471 QTc: 471 Interpretive Statements Afib/flut and V-paced complexes No further analysis attempted due to paced rhythm Compared to ECG 05/27/2018 12:15:12 No significant changes Electronically Signed On 07-31-2018 9:01:01 CDT by Eliot Vivar [email or web address] <ELECTRONICALLY SIGNED> By: Eliot Vivar MD, FACC 07/31/18 0901 175 175 Eliot Vivar MD, [facility] /EPI
[~2018-07-30 17:10] MED LIST changes: +ADVAIR HFA 230M12 GM INH; +DEMADEX20 MG PO; +K-DUR10 MEQ PO; +LIPITOR10 MG PO; +MELATONIN5 M1 PO
[2018-07-30] MEDS ORDERED: SPIRONOLACTONE25 M1 PO (17:38)
[2018-07-30] MEDS ORDERED: COLACE100 MG PO (17:38)
[2018-07-30] MEDS ORDERED: TYLENOL325 MG PO (17:39)
[2018-07-30 17:55] LABS: ABSOLUTE NEUTROPHILS 10.2 thou/uL (1.4-8.2); BASOPHILS 0.6 % (0.0-2.0); EOSINOPHILS 0.2 % (0.0-3.0); HEMATOCRIT 21.8 % (37.0-47.0); LYMPHOCYTES 8.1 % (24.0-44.0); MCHC 32.2 g/dL (28.0-37.0); MCV 83.9 fL (80.0-100.0); MONOCYTES 4.5 % (1.0-8.0); PLATELET COUNT 269 thou/uL (150-400); POLYS 86.6 % (36.0-66.0); RDW 19.8 % (10.5-14.5); WBC 11.8 thou/uL (4.0-11.0)
[2018-07-30 17:59] LABS: ANION GAP 13 mmol/L (7-16); BUN 46 mg/dL (7-18); CALCIUM 9.2 mg/dL (8.5-10.1); CHLORIDE 97 mmol/L (98-107); CO2 24 mmol/L (21-32); CREATININE 1.6 mg/dL (0.6-1.0); GLUCOSE 224 mg/dL (74-106); POTASSIUM 4.8 mmol/L (3.5-5.1); SODIUM 134 mmol/L (136-145)
[2018-07-30 18:07] LABS: TROPONIN-I <0.06 ng/mL (<0.06)
[2018-07-30 20:56] VITALS: BP 97/39
[2018-07-30 21:07] VITALS: BP 97/39
[2018-07-30 21:29] VITALS: BP 133/62
[2018-07-31 01:04] LABS: URINE BILIRUBIN NEGATIVE (Negative); URINE BLOOD NEGATIVE (Negative); URINE CLARITY CLEAR; URINE COLOR YELLOW; URINE GLUCOSE-RANDOM* NEGATIVE (Negative); URINE KETONES NEGATIVE (Negative); URINE LEUKOCYTES-REFLEX NEGATIVE (Negative); URINE NITRITE-REFLEX NEGATIVE (Negative); URINE PROTEIN (DIPSTICK) NEGATIVE (Negative); URINE UROBILINOGEN 0.2 E.U./dl (0.2-1.0)
[2018-07-31 01:36] LABS: % SATURATION 5 % (20-39); IRON 21 ug/dL (50-170); TIBC 400 ug/dL (250-450)
[2018-07-31 02:37] LABS: TSH 1.94 uIU/mL (0.358-3.740)
[2018-07-31 04:08] VITALS: BP 120/50; BP 153/78
[2018-07-31 05:47] LABS: HEMATOCRIT 20.2 % (37.0-47.0)
[2018-07-31 05:56] LABS: HEMOGLOBIN 6.4 gm/dL (12.0-15.0)
[2018-07-31 06:05] LABS: CREATININE 1.4 mg/dL (0.6-1.0); POTASSIUM 4.2 mmol/L (3.5-5.1)
[2018-07-31 08:14] VITALS: BP 140/54
[2018-07-31 16:17] VITALS: BP 146/63
[2018-07-31 19:47] VITALS: BP 128/47
[2018-08-01 03:12] VITALS: BP 141/49
[2018-08-01 05:45] LABS: HEMATOCRIT 23.9 % (37.0-47.0); HEMOGLOBIN 7.7 gm/dL (12.0-15.0); MCHC 32.1 g/dL (28.0-37.0); MCV 83.9 fL (80.0-100.0); PLATELET COUNT 219 thou/uL (150-400); RBC 2.84 mil/uL (4.20-5.00); RDW 19.2 % (10.5-14.5); WBC 6.7 thou/uL (4.0-11.0)
[2018-08-01 05:51] LABS: PROTIME 10.7 Seconds (9.3-11.4)
[2018-08-01 06:00] LABS: CALCIUM 8.5 mg/dL (8.5-10.1); CREATININE 1.3 mg/dL (0.6-1.0); POTASSIUM 3.2 mmol/L (3.5-5.1)
[2018-08-01 07:40] VITALS: BP 138/57
[2018-08-01 08:48] LABS: ABSOLUTE NEUTROPHILS 4.6 thou/uL (1.4-8.2); NUCLEATED RBCS 1 /100WBC
[2018-08-01 08:49] LABS: ANISOCYTOSIS 2+; OVALOCYTES 1+
[2018-08-01 12:57] VITALS: BP 132/55
[2018-08-01 15:32] VITALS: BP 137/43
[2018-08-01 19:31] VITALS: BP 132/58
[2018-08-02 04:28] VITALS: BP 148/53
[2018-08-02 05:40] LABS: ABSOLUTE NEUTROPHILS 4.3 thou/uL (1.4-8.2); EOSINOPHILS 1.9 % (0.0-3.0); HEMATOCRIT 23.9 % (37.0-47.0); HEMOGLOBIN 7.7 gm/dL (12.0-15.0); MCH 27.2 pg (26.0-34.0); MCHC 32.1 g/dL (28.0-37.0); MCV 84.8 fL (80.0-100.0); MONOCYTES 11.3 % (1.0-8.0); PLATELET COUNT 216 thou/uL (150-400); POLYS 66.8 % (36.0-66.0); RBC 2.82 mil/uL (4.20-5.00); RDW 18.8 % (10.5-14.5); WBC 6.4 thou/uL (4.0-11.0)
[2018-08-02 06:12] LABS: ALBUMIN 2.7 g/dL (3.4-5.0); CALCIUM 8.8 mg/dL (8.5-10.1); POTASSIUM 3.3 mmol/L (3.5-5.1); TOTAL BILIRUBIN 0.5 mg/dL (<0.1-1.0); TOTAL PROTEIN 5.9 g/dL (6.4-8.2)
[2018-08-02 08:14] VITALS: BP 151/66
[2018-08-02 13:21] LABS: HEMOGLOBIN 9.1 gm/dL (12.0-15.0)
[2018-08-02] MEDS ORDERED: FOLIC ACID 1 MG1 MG PO (13:41)
[2018-08-02] MEDS ORDERED: MULTIVITAMINS1 EAC7 PO (13:41)
[2018-08-02] MEDS ORDERED: PROTONIX40 M1 PO (13:41)
[2018-08-02] MEDS ORDERED: IRON325 PO (13:41)
[2018-08-02 14:08] VITALS: BP 151/66
[2018-08-02 14:35] VITALS: BP 151/66
[2018-08-02 14:37] VITALS: BP 151/66
[2018-08-03] MEDS ORDERED: TRAMADOL 50 MG50 MG PO (19:34)
[2018-08-03] MEDS ORDERED: KEFLEX500 M1 PO (19:34)
== END 2018-08-02 16:47 | disposition home health service (06) | DRG 377 ==
LOC: ER 17:10 → EROBS 20:03 → 4W 20:03 → ENTRNSPT 08-02 16:08 → 4W 08-02 16:47
PROVIDERS: Emergency Medicine; Hospitalist; Nurse Practitioner; Nurse Practitioner Acute Care
PROC: 30233N1 Transfusion of Nonautologous Red Blood Cells into Peripheral Vein, Percutaneous Approach (ICD-10-PCS; principal; 2018-07-31)
PROC: 0DJ08ZZ Inspection of Upper Intestinal Tract, Via Natural or Artificial Opening Endoscopic (ICD-10-PCS; 2018-08-01)
DX: K92.2 Gastrointestinal hemorrhage, unspecified (principal); I50.33 Acute on chronic diastolic (congestive) heart failure; N17.0 Acute kidney failure with tubular necrosis; I13.0 Hypertensive heart and chronic kidney disease with heart failure and stage 1 through stage 4 chronic kidney disease, or unspecified chronic kidney disease; N18.4 Chronic kidney disease, stage 4 (severe); J96.11 Chronic respiratory failure with hypoxia; J84.10 Pulmonary fibrosis, unspecified; I27.20 Pulmonary hypertension, unspecified; E03.9 Hypothyroidism, unspecified; I48.2 Chronic atrial fibrillation; E11.22 Type 2 diabetes mellitus with diabetic chronic kidney disease; D50.9 Iron deficiency anemia, unspecified; M62.84 Sarcopenia; K25.9 Gastric ulcer, unspecified as acute or chronic, without hemorrhage or perforation; Z95.0 Presence of cardiac pacemaker; Z90.49 Acquired absence of other specified parts of digestive tract; Z98.49 Cataract extraction status, unspecified eye; Z85.3 Personal history of malignant neoplasm of breast; Z90.11 Acquired absence of right breast and nipple; Z88.8 Allergy status to other drugs, medicaments and biological substances; Z82.49 Family history of ischemic heart disease and other diseases of the circulatory system; Z83.3 Family history of diabetes mellitus; Z87.891 Personal history of nicotine dependence; Z79.52 Long term (current) use of systemic steroids; Z86.010 Personal history of colon polyps; Z92.21 Personal history of antineoplastic chemotherapy; Z92.3 Personal history of irradiation
CPT/HCPCS: 10045; 62110; 62900; 70005

== ENCOUNTER 2018-08-03 18:02 | Emergency (ER) | payer OTHER, MEDICARE ==
[~2018-08-03] VITALS: Ht 160 cm; Wt 70.3 kg
[~2018-08-03 18:02] MED LIST changes: +COLACE100 MG PO; +FOLIC ACID 1 MG1 MG PO; +IRON325 PO; +MULTIVITAMINS1 EAC7 PO; +PROTONIX40 M1 PO; +SPIRONOLACTONE25 M1 PO; +TYLENOL325 MG PO
[2018-08-03] MEDS ORDERED: TRAMADOL 50 MG50 MG PO (19:34)
[2018-08-03] MEDS ORDERED: KEFLEX500 M1 PO (19:34)
[2018-08-03 20:39] LABS: HEMATOCRIT 25.9 % (37.0-47.0); HEMOGLOBIN 8.4 gm/dL (12.0-15.0)
== END 2018-08-03 21:37 | disposition home or self-care (01) ==
LOC: ER 18:02
PROVIDERS: Emergency Medicine
DX: S01.511A Laceration without foreign body of lip, initial encounter (principal); S51.812A Laceration without foreign body of left forearm, initial encounter; S51.811A Laceration without foreign body of right forearm, initial encounter; S81.012A Laceration without foreign body, left knee, initial encounter; S01.411A Laceration without foreign body of right cheek and temporomandibular area, initial encounter; S81.011A Laceration without foreign body, right knee, initial encounter; I48.91 Unspecified atrial fibrillation; E11.9 Type 2 diabetes mellitus without complications; I95.9 Hypotension, unspecified; I50.30 Unspecified diastolic (congestive) heart failure; Z79.01 Long term (current) use of anticoagulants; Z88.8 Allergy status to other drugs, medicaments and biological substances; W01.0XXA Fall on same level from slipping, tripping and stumbling without subsequent striking against object, initial encounter; Y93.89 Activity, other specified; Y92.098 Other place in other non-institutional residence as the place of occurrence of the external cause; Y99.8 Other external cause status

== ENCOUNTER 2018-08-07 16:56 | Inpatient (IN) | payer OTHER, MEDICARE ==
[~2018-08-07] VITALS: Ht 160 cm; Wt 73.9 kg
--- NOTE | ~2018-08-07 | HC ---
[facility] [place] [address] CONSULTATION Name: MANPREET THOMAS Room #: 464-P ADM IN M.R.#: [id number] Admission: 08/07/18 Attend Phys: Suman Riley Discharge: Date of : 31 Report #: [id number] THIS REPORT FOR: //name// CC: Manju Beth DATE OF SERVICE: 08/08/2018 CHIEF COMPLAINT: Multiple skin tears, upper and lower extremities. HISTORY OF PRESENT ILLNESS: This is an 82-year-old female patient who lives at home. She uses a walker. She felt weak and reached for her walker which was not locked causing her to fall. She sustained multiple skin tears to both forearms and both knee areas. She was noted to have low hemoglobin. She is here being evaluated. She is scheduled to have endoscopy done. At this point in time, she complains of pain at the skin tear sites especially when dressings are changed. She also complains of some generalized weakness, but denies other significant complaints at present. PAST MEDICAL HISTORY: Positive for history of atrial fibrillation, acute kidney injury, congestive heart failure, cor pulmonale, diabetes mellitus, peripheral arterial disease, pulmonary hypertension. ALLERGIES: MELOXICAM. MEDICATIONS: Include Keflex, tramadol, ferrous sulfate, folic acid, multivitamin, pantoprazole, albuterol, cyanocobalamin, prednisone. She has previously been on Eliquis. This has been discontinued. FAMILY HISTORY: Noncontributory. SOCIAL HISTORY: The patient lives at home alone. She uses a walker, but is able to manage herself. She is a previous smoker. Admits to occasional daily alcohol consumption. REVIEW OF SYSTEMS: CONSTITUTIONAL: The patient denies fever, chills, or weight loss. NEUROLOGICAL: The patient denies focal weakness. Does complain of generalized weakness. ENT: The patient denies earache, nasal drainage, or sore throat. CARDIOVASCULAR: Complain of chest pain, palpitations, diaphoresis. PULMONARY: The patient denies cough, shortness of breath. GASTROINTESTINAL: The patient denies nausea, vomiting, diarrhea or abdominal pain. There is some history of melena. GENITOURINARY: The patient denies frequency or urgency of urination. Denies [address] [address] CONSULTATION Name: MANPREET THOMAS Reji Room #: 464-P [facility] IN ..#: [id number] Admission: 08/07/18 Attend Phys: Suman Riley Discharge: Date of : 33 Report #: [id number] dysuria. ORTHOPEDIC: The patient complains of skin tears to upper and lower extremities. Other systems in a 14-point review of systems are negative. PHYSICAL EXAMINATION: VITAL SIGNS: At this time include pulse 68, respiratory rate 15, blood pressure 112/50, temperature 97.4. GENERAL: This is an elderly female patient who appears to be in minimal distress. HEENT: Head normocephalic. Nose and throat are clear. NECK: Supple. LUNGS: Clear. ABDOMEN: Soft, bowel sounds present. EXTREMITIES: Demonstrate skin is pink, warm and dry distally. She has multiple skin tears on both forearms and elbow regions as well as both legs in the knee region bilaterally. There is no obvious hematoma at this time. No evidence of any tissue necrosis. NEUROLOGIC: The patient is alert, moving all 4 extremities spontaneously. LABORATORY DATA: White blood cell count is 6.2 with hemoglobin of 7.3, hematocrit 22.9, platelet count 154,000. Albumin is low at 3.0. Total protein is 6.4. BUN 25, creatinine 1.2, glucose 108. CLINICAL IMPRESSION: 1. Multiple traumatic injuries to the upper and lower extremities manifested as skin tears. 2. Diabetes mellitus. 3. Anemia with possible GI source of blood loss. RECOMMENDATIONS: We will use [place] to secure the skin to prevent further tearing. We have placed adhesive foam over these areas for padding and protection as well as Kerlix. We will change these 2-3 days per week. We will leave her compression stockings off for now. Further evaluation of her low hemoglobin is underway. <ELECTRONICALLY SIGNED> By: Niko Acevedo MD 08/09/18 0827 [id number] [id number] Niko Acevedo MD /nt
--- NOTE | ~2018-08-07 | HC ---
[facility] [place] [address] CONSULTATION Name: MANPREET THOMAS Room #: 464-P ADM IN M.R.#: [id number] Admission: 08/07/18 Attend Phys: Suman Riley Discharge: Date of : 33 Report #: [id number] THIS REPORT FOR: //name// CC: Manju Beth DATE OF SERVICE: 08/11/2018 CHIEF COMPLAINT: Right shoulder pain. HISTORY OF PRESENT ILLNESS: The patient is a pleasant 82-year-old female who has been admitted to [facility] for multiple other comorbidities, but also complains of right shoulder pain over the last week. She reports that she fell approximately one week ago and has had increased pain in the shoulder since this time. While she was staying in the hospital, she was trying to lift or move herself and recalls feeling a pop in the shoulder with increased pain and decreased range of motion since feeling this pop several days ago. The patient reports now she is unable to lift her arm overhead and has significant pain at rest. She localizes the pain to the anterior and posterior aspects of the right shoulder and states that the pain is worse with activities and motion, better with rest and heat. ALLERGIES: MELOXICAM. MEDICATIONS: Please see MAR for current medications, dosing, but medications include Keflex, Ultram, iron, folic acid, multivitamin, Protonix, AccuNeb, vitamin B12 and prednisone. PAST MEDICAL AND SURGICAL HISTORY: Significant for EGD in 07/2018, pacemaker in 2011, bradycardia, hypertension, SLE, partial colectomy, wound infection all in 2010, diverticulitis, cataracts, breast cancer in 1983, mastectomy 1983, pulmonary fibrosis, AFib, type 2 diabetes mellitus, CHF, HLD, pulmonary hypertension, hypothyroidism. SOCIAL HISTORY: Significant for prior tobacco use greater than one year ago. The patient does report daily alcohol use. PHYSICAL EXAMINATION: GENERAL APPEARANCE: The patient is awake, alert, in no acute distress. EXTREMITIES: Right upper extremity active range of motion is 30 degrees in forward flexion. Passive range of motion, forward flexion to 90 degrees, external rotation to 25 degrees. Right shoulder strength is external rotation, 4+, internal rotation 4, supraspinatus strength not assessed today due to pain. Deltoid strength is 4+. There is tenderness to palpation of the anterior and posterior aspects of the shoulder. Acromioclavicular joint is nontender to [facility] [address] [place] [address] CONSULTATION Name: MANPREET THOMAS Room #: 464-P [facility] IN [facility]#: [id number] Admission: 08/07/18 Attend Phys: Suman Riley Discharge: Date of : 33 Report #: [id number] palpation today. IMAGING: Three views of the right shoulder performed on 08/10/2018 showed no acute fracture or dislocations. Moderate right AC joint osteoarthrosis. IMPRESSION: Right shoulder pain, rotator cuff tear arthropathy. PLAN: Discussed the patient's diagnosis and treatment options today including physical therapy, oral medications, injections and operative intervention. The patient would like to avoid operative intervention if at all possible. She has elected to proceed with an injection of the right shoulder today. We discussed that with more persistent symptoms, I would like to have her follow up with either myself or Dr. Maksim Valentino at [facility] in 4-6 weeks' time for follow up of the right shoulder. The patient verbalized understanding. PROCEDURE PERFORMED: After informed consent, the right shoulder was sterilely prepped with Betadine, 4 mL of 1% lidocaine and 40 mg of Depo-Medrol were injected into the patient's right subacromial space. The patient tolerated the injection well. We will follow up with the patient in 4-6 weeks' time to evaluate the results. By: 1320 1335 JANES Bazan /shelby
--- NOTE | ~2018-08-07 | PATH ---
[facility] [address] [address] PATHOLOGY RPT PROCEDURE Name: MANPREET VAZQUEZ Room #: 464-P DIS IN M.R.#: [id number] Admission: 08/07/18 Date of : 33 Discharge: 08/11/18 Report #: [id number] Path Case #: [id number] [facility] Accession Number: [id number] . 01 Material submitted: . PART A: DUODENUM R/O CELIAC BX PART B: ANTRUM R/O H. PYLORI PART C: DISTAL ESOPHAGUS R/O SALDANA'S PART D: ASCENDING COLON POLYP X 9 PART E: SPLENIC FLEXURE POLYP . 01 Clinical history: . Pre-OP DX: Symptomatic anemia Post-OP DX: Gastric erosions, hiatal hernia . 02 Diagnosis: A. Duodenum "duodenum", biopsy: - No obvious diagnostic changes. - There is no evidence of acute cryptitis, granulomas, adenomatous change, sprue-like changes or malignancy. . B. Gastric biopsy, antrum: - Mild chronic reactive gastropathy with reactive foveolar hyperplasia. - There is no evidence of any erosions or ulcerations. - The immunoperoxidase stain for Helicobacter pylori is negative. . C. Glandular gastric-type mucosa "distal esophageal biopsy": - Polypoid gastric mucosa with mild chronic reactive gastropathy. - Squamous epithelium is not present for evaluation. - There is no evidence of goblet cell metaplasia, dysplasia or malignancy. . D. Colonic mucosa "ascending colon polyp x 9": - Fragments of tubular and hyperplastic polyps. - There is no evidence of high-grade dysplasia or malignancy. . E. Colonic mucosa "splenic flexure" biopsy: - Tubular adenoma. - There is no evidence of high-grade dysplasia or malignancy. (SHA:mario alberto; 08/12/2018) QMS/08/12/2018 . 02 Electronically signed: . Wali Aponte MD, Pathologist NPI- [id number] . 01 Gross description: . A. Received in formalin labeled "Manpreet Vazquez duodenum BX, rule out [address] [address] PATHOLOGY RPT PROCEDURE Name: MANPREET VAZQUEZ Room #: 464-P DIS IN M.R.#: [id number] Admission: 08/07/18 Date of : 33 Discharge: 08/11/18 Report #: [id number] Path Case #: [id number] celiac," are 2 segments of herrmann soft tissue measuring 0.8 x 0.3 x 0.3 cm in aggregate dimensions and ranging from 0.3 to 0.5 cm in maximum dimension. The specimen is submitted entirely in cassette A1. . B. Received in formalin labeled "[place], Manpreet, antral BX, rule out H. pylori," is a single segment of herrmann soft tissue measuring 0.3 cm in maximum dimension. The specimen is entirely submitted in cassette B1. . C. Received in formalin labeled "[place], Manpreet, distal esophagus BX, rule out Saldana's," is a single segment of herrmann soft tissue measuring 0.4 cm in maximum dimension. The specimen is entirely submitted in cassette C1. . D. Received in formalin labeled "[place], Manpreet, ascending colon polyp x9," are multiple segments of herrmann soft tissue measuring 2.5 x 0.6 x 0.2 cm in aggregate dimensions. The specimen is filtered and entirely submitted in cassette D1. . E. Received in formalin labeled "Taylor, Manpreet, splenic flexure polyp," is a single segment of herrmann soft tissue measuring 0.3 cm in maximum dimension. The specimen is entirely submitted in cassette E1. (TSD; 08/09/2018) TOB/TOB . 02 Pathologist provided ICD-10: K31.9, D12.2, D12.3, K63.5 . 02 CPT . 250226, 736007, 828859, 564901, 933988, J36842 Specimen Comment: A courtesy copy of this report has been sent to Specimen Comment: [phone], , . Specimen Comment: Report sent to ,DR HANNA / DR MADDOX Specimen Comment: A duplicate report has been generated due to demographic updates. Performed at: [address] [facility], [place], [place] [id number] MD Kiel Rodrigez MD Phone: [phone] Performed at: [address] [facility] [id number] MD Oksana Puga MD Phone: [phone]
--- NOTE | ~2018-08-07 | EKG ---
[place] [address] [place] [address] ELECTROCARDIOGRAM REPORT Name: MANPREET THOMAS [id number] Admission: 08/07/18 Attend Phys: Discharge: Date of : 33 Report #: [id number] THIS REPORT FOR: //name// [facility] ED Test Date: 2018-08-07 Test Time: 18:09:00 Pat Name: MANPREET THOMAS Department: Room: Gender: F [employer] Director: EVERT : 1935 Requested By: Genesis Casper Order Number: [id number] MD: Measurements Intervals [place] Rate: 60 P: MT: QRS: -81 QRSD: 151 T: 98 QT: 471 QTc: 471 Interpretive Statements Afib/flutter and ventricular-paced rhythm No further analysis attempted due to paced rhythm Compared to ECG 07/30/2018 17:51:36 No significant changes [email or web address] By: 08 180 Epiphany Epiphany, /EPI
[~2018-08-07 16:56] MED LIST changes: +KEFLEX500 M1 PO; +TRAMADOL 50 MG50 MG PO
[2018-08-07 16:57] VITALS: BP 135/39
[2018-08-07] MEDS ORDERED: AMARYL4 MG PO (19:08)
[2018-08-07 19:17] LABS: HEMATOCRIT 22.8 % (37.0-47.0); HEMOGLOBIN 7.4 gm/dL (12.0-15.0); MCHC 32.5 g/dL (28.0-37.0); MCV 86.2 fL (80.0-100.0); PLATELET COUNT 164 thou/uL (150-400); RBC 2.65 mil/uL (4.20-5.00); RDW 22.6 % (10.5-14.5); WBC 7.5 thou/uL (4.0-11.0)
[2018-08-07 19:27] LABS: ANION GAP 6 mmol/L (7-16); BUN 29 mg/dL (7-18); CALCIUM 9.2 mg/dL (8.5-10.1); CHLORIDE 100 mmol/L (98-107); CO2 32 mmol/L (21-32); CREATININE 1.4 mg/dL (0.6-1.0); GLUCOSE 175 mg/dL (74-106); POTASSIUM 3.6 mmol/L (3.5-5.1); SODIUM 138 mmol/L (136-145)
[2018-08-07 19:29] LABS: APTT 24.5 Seconds (24.5-32.8); PROTIME 10.1 Seconds (9.3-11.4)
[2018-08-07 19:36] LABS: SGOT 14 U/L (15-37); SGPT 17 U/L (30-65); TOTAL BILIRUBIN 0.4 mg/dL (<0.1-1.0); TOTAL PROTEIN 6.4 g/dL (6.4-8.2); TROPONIN-I <0.06 ng/mL (<0.06)
[2018-08-07 20:10] LABS: ABSOLUTE NEUTROPHILS 5.2 thou/uL (1.4-8.2); ATYPICAL LYMPHS 1 %
[2018-08-07 20:12] LABS: ANISOCYTOSIS 2+; HYPOCHROMASIA 1+; OVALOCYTES FEW; POLYCHROMASIA OCCASIONAL
[2018-08-07 20:25] VITALS: BP 126/45
[2018-08-07 20:39] VITALS: BP 126/45
[2018-08-07 21:08] VITALS: BP 175/90
[2018-08-07 22:31] LABS: URINE BILIRUBIN NEGATIVE (Negative); URINE BLOOD NEGATIVE (Negative); URINE CLARITY CLEAR; URINE COLOR YELLOW; URINE GLUCOSE-RANDOM* TRACE (Negative); URINE KETONES NEGATIVE (Negative); URINE LEUKOCYTES NEGATIVE (Negative); URINE NITRITE NEGATIVE (Negative); URINE PROTEIN (DIPSTICK) NEGATIVE (Negative); URINE UROBILINOGEN 0.2 E.U./dl (0.2-1.0)
[2018-08-07 23:51] VITALS: BP 113/45
[2018-08-08 04:41] VITALS: BP 132/60
[2018-08-08 06:13] LABS: HEMATOCRIT 22.9 % (37.0-47.0); HEMOGLOBIN 7.3 gm/dL (12.0-15.0); MCH 27.3 pg (26.0-34.0); MCHC 31.7 g/dL (28.0-37.0); MCV 86.1 fL (80.0-100.0); RBC 2.66 mil/uL (4.20-5.00); RDW 21.9 % (10.5-14.5); WBC 6.2 thou/uL (4.0-11.0)
[2018-08-08 06:24] LABS: CALCIUM 8.9 mg/dL (8.5-10.1); CREATININE 1.2 mg/dL (0.6-1.0); POTASSIUM 3.3 mmol/L (3.5-5.1)
[2018-08-08 08:04] VITALS: BP 125/50
[2018-08-08 14:35] VITALS: BP 120/47
[2018-08-08 19:39] VITALS: BP 131/53
[2018-08-09 00:58] VITALS: BP 126/66
[2018-08-09 01:14] VITALS: BP 115/57; BP 143/57
[2018-08-09 04:05] VITALS: BP 115/57
[2018-08-09 06:39] LABS: HEMATOCRIT 26.7 % (37.0-47.0); HEMOGLOBIN 8.8 gm/dL (12.0-15.0); MCH 28.7 pg (26.0-34.0); MCHC 33.2 g/dL (28.0-37.0); MCV 86.6 fL (80.0-100.0); RBC 3.08 mil/uL (4.20-5.00); RDW 20.5 % (10.5-14.5); WBC 7.3 thou/uL (4.0-11.0)
[2018-08-09 08:00] VITALS: BP 138/39
[2018-08-09 16:00] VITALS: BP 123/40
[2018-08-09 19:08] VITALS: BP 123/57
[2018-08-10 02:56] VITALS: BP 146/57
[2018-08-10 06:21] LABS: HEMATOCRIT 26.1 % (37.0-47.0); HEMOGLOBIN 8.5 gm/dL (12.0-15.0); MCH 28.5 pg (26.0-34.0); MCHC 32.7 g/dL (28.0-37.0); MCV 87.2 fL (80.0-100.0); RBC 2.99 mil/uL (4.20-5.00); RDW 21.4 % (10.5-14.5); WBC 6.7 thou/uL (4.0-11.0)
[2018-08-10 06:34] LABS: CALCIUM 9.5 mg/dL (8.5-10.1); POTASSIUM 3.6 mmol/L (3.5-5.1)
[2018-08-10 07:25] VITALS: BP 163/54
[2018-08-10 19:18] VITALS: BP 134/49
[2018-08-11 04:58] VITALS: BP 133/46
[2018-08-11 08:54] VITALS: BP 127/69
[2018-08-11] MEDS ORDERED: TRAMADOL 50 MG50 MG PO (10:01)
[2018-08-11 11:46] VITALS: BP 127/69
[2018-08-11 11:48] VITALS: BP 127/69
[2018-08-11 13:06] VITALS: BP 127/69
== END 2018-08-11 17:56 | disposition home or self-care (01) | DRG 380 ==
LOC: ER 16:56 → 4W 20:06 → EROBS 20:06 → 4W 20:53
PROVIDERS: Internal Medicine; Nurse Practitioner; Nurse Practitioner Family; Physician Assistant
PROC: 0DBL8ZZ Excision of Transverse Colon, Via Natural or Artificial Opening Endoscopic (ICD-10-PCS; principal; 2018-08-09)
PROC: 30233N1 Transfusion of Nonautologous Red Blood Cells into Peripheral Vein, Percutaneous Approach (ICD-10-PCS; principal; 2018-08-09)
PROC: 0DB98ZX Excision of Duodenum, Via Natural or Artificial Opening Endoscopic, Diagnostic (ICD-10-PCS; principal; 2018-08-09)
PROC: 0DBK8ZZ Excision of Ascending Colon, Via Natural or Artificial Opening Endoscopic (ICD-10-PCS; principal; 2018-08-09)
PROC: 0DB38ZX Excision of Lower Esophagus, Via Natural or Artificial Opening Endoscopic, Diagnostic (ICD-10-PCS; principal; 2018-08-09)
PROC: 0DB68ZX Excision of Stomach, Via Natural or Artificial Opening Endoscopic, Diagnostic (ICD-10-PCS; principal; 2018-08-09)
PROC: 3E0233Z Introduction of Anti-inflammatory into Muscle, Percutaneous Approach (ICD-10-PCS; 2018-08-11)
DX: K22.70 Barrett's esophagus without dysplasia (principal); I50.33 Acute on chronic diastolic (congestive) heart failure; J96.11 Chronic respiratory failure with hypoxia; I13.0 Hypertensive heart and chronic kidney disease with heart failure and stage 1 through stage 4 chronic kidney disease, or unspecified chronic kidney disease; N17.9 Acute kidney failure, unspecified; K29.71 Gastritis, unspecified, with bleeding; D50.9 Iron deficiency anemia, unspecified; I48.91 Unspecified atrial fibrillation; I27.20 Pulmonary hypertension, unspecified; E03.9 Hypothyroidism, unspecified; K63.5 Polyp of colon; K25.9 Gastric ulcer, unspecified as acute or chronic, without hemorrhage or perforation; E11.51 Type 2 diabetes mellitus with diabetic peripheral angiopathy without gangrene; Z60.2 Problems related to living alone; E78.5 Hyperlipidemia, unspecified; S46.011A Strain of muscle(s) and tendon(s) of the rotator cuff of right shoulder, initial encounter; J84.10 Pulmonary fibrosis, unspecified; N18.3 Chronic kidney disease, stage 3 (moderate); E78.00 Pure hypercholesterolemia, unspecified; S81.012A Laceration without foreign body, left knee, initial encounter; S81.011A Laceration without foreign body, right knee, initial encounter; S41.112A Laceration without foreign body of left upper arm, initial encounter; E11.22 Type 2 diabetes mellitus with diabetic chronic kidney disease; S41.111A Laceration without foreign body of right upper arm, initial encounter; K44.9 Diaphragmatic hernia without obstruction or gangrene; K64.8 Other hemorrhoids; Z95.0 Presence of cardiac pacemaker; Z98.49 Cataract extraction status, unspecified eye; Z85.3 Personal history of malignant neoplasm of breast; Z90.11 Acquired absence of right breast and nipple; Z86.711 Personal history of pulmonary embolism; Z88.8 Allergy status to other drugs, medicaments and biological substances; Z90.49 Acquired absence of other specified parts of digestive tract; Z87.11 Personal history of peptic ulcer disease; Z87.891 Personal history of nicotine dependence; Z28.21 Immunization not carried out because of patient refusal; W18.39XA Other fall on same level, initial encounter; Y93.89 Activity, other specified; Y92.89 Other specified places as the place of occurrence of the external cause; Y99.8 Other external cause status; D12.2 Benign neoplasm of ascending colon; D12.3 Benign neoplasm of transverse colon
CPT/HCPCS: 10045; 62110; 62900; 70005

== ENCOUNTER 2018-10-22 15:07 | Inpatient (IN) | payer OTHER, MEDICARE ==
[~2018-10-22] VITALS: Ht 160 cm; Wt 73.5 kg
[~2018-10-22 15:07] MED LIST changes: +AMARYL4 MG PO
--- NOTE | 2018-10-22 17:15 | NUR ---
ASSUMED PT CARE, INITIAL ASSESSMENT COMPLETE. AWAITING ERP TO EVALUATE
[2018-10-22 18:29] LABS: ABSOLUTE NEUTROPHILS 5.6 thou/uL (1.4-8.2); BASOPHILS 0.4 % (0.0-2.0); EOSINOPHILS 0.4 % (0.0-3.0); HEMATOCRIT 21.8 % (37.0-47.0); HEMOGLOBIN 7.1 gm/dL (12.0-15.0); MCH 28.3 pg (26.0-34.0); MCHC 32.5 g/dL (28.0-37.0); MCV 87.1 fL (80.0-100.0); MONOCYTES 8.8 % (1.0-8.0); PLATELET COUNT 231 thou/uL (150-400); POLYS 81.4 % (36.0-66.0); RBC 2.51 mil/uL (4.20-5.00); WBC 6.9 thou/uL (4.0-11.0)
[2018-10-22 18:37] LABS: CALCIUM 9.6 mg/dL (8.5-10.1); CREATININE 1.7 mg/dL (0.6-1.0); POTASSIUM 3.8 mmol/L (3.5-5.1)
[2018-10-22 18:43] LABS: ALBUMIN 3.3 g/dL (3.4-5.0); TOTAL BILIRUBIN 0.4 mg/dL (<0.1-1.0)
[2018-10-22 20:30] VITALS: BP 141/58
--- NOTE | 2018-10-22 20:46 | NUR ---
2ND ATTEMPT TO GIVE REPORT TO FLOOR RN, NO RESPONSE
[2018-10-22 21:09] VITALS: BP 141/58
[2018-10-22 22:04] VITALS: BP 129/63
[2018-10-22] MEDS ORDERED: TRELEGY ELLIPT1 EACH INH (23:54)
[2018-10-22] MEDS ORDERED: PREDNISONE 10 M10 MG PO (23:57)
[2018-10-23] MEDS ORDERED: ELIQUIS5 MG PO (00:19)
[2018-10-23 00:24] LABS: HEMATOCRIT 21.4 % (37.0-47.0); HEMOGLOBIN 6.8 gm/dL (12.0-15.0)
[2018-10-23 01:00] VITALS: BP 152/58; BP 156/60
[2018-10-23 02:32] VITALS: BP 138/66
[2018-10-23 03:24] VITALS: BP 162/65
[2018-10-23 06:15] LABS: % SATURATION 6 % (20-39); IRON 18 ug/dL (50-170); TIBC 320 ug/dL (250-450)
[2018-10-23 06:50] LABS: CALCIUM 9.1 mg/dL (8.5-10.1); CREATININE 1.3 mg/dL (0.6-1.0); POTASSIUM 3.5 mmol/L (3.5-5.1)
[2018-10-23 07:55] VITALS: BP 123/93
--- NOTE | 2018-10-23 08:24 | NUR ---
PT ARRIVED TO UNIT APPROX 2130 IN STABLE CONDITION, ABLE TO WALK TO BED FROM ER CART. ADMISSION AND ASSESSMENT COMPLETED, WELCOME PACKET GIVEN AND CONSENTS SIGNED. PT DENIES PAIN, NAUSEA, OR SOB. C/O GENERALIZED WEAKNESS AND FATIGUE. CLEARS UNTIL MIDNIGHT THEN NPO FOR POSSIBLE EGD THIS AM. ON 4L O2 NC PER HOME REGIMEN. MIDNIGHT H/H CAME BACK AT 6.8, TRANSFUSED ONE UNIT OF BLOOD OVERNIGHT. PROTONIX DRIP INFUSING. SLIGHT CRACKLES IN BILAT LUNGS, MILD PITTING EDEMA IN BLE. NO OTHER CONCERNS, SHIFT REPORT GIVEN AT 0700.
[2018-10-23 09:10] VITALS: BP 123/93
[2018-10-23] MEDS ORDERED: ALBUTEROL2.5 MG/31 INH (10:03)
[2018-10-23] MEDS ORDERED: VITAMIN B-12500 MCG PO (10:04)
[2018-10-23] MEDS ORDERED: IRON325 PO (10:05)
[2018-10-23] MEDS ORDERED: UNICOMPLEX M TA1 TA1 PO (10:06)
[2018-10-23] MEDS ORDERED: TRAZODONE HCL50 MG PO (10:06)
--- NOTE | 2018-10-23 12:33 | NUR ---
ASSESSMENT-PT LIVES AT HOME ALONE. HER SON AND D-I-L LIVE ACROSS THE STRE[address]. PT USES A WALKER TO GET AROUND AND DOES HER OWN ADLS. PT HAS O2 THRU [facility]. PT HAS HAD [facility] IN THE PAST. PT DOES NOT DRIVE. SHE DOES HER OWN COOKING, CLEANING AND LAUNDRY. PT DENIES ANY DC NEEDS AT THIS TIME. FOLLOWING TO ASSIST WITH DC PLANNING.
[2018-10-23 18:41] LABS: HEMATOCRIT 25.6 % (37.0-47.0); HEMOGLOBIN 8.3 gm/dL (12.0-15.0)
--- NOTE | 2018-10-23 20:42 | NUR ---
ASSUMED CARE AT 1900, HUNG NEW BAG OF IV PROTONIX. DISCUSSED TRANSFERRING PT TO SENIOR SUITES. REPORT CALLED TO [facility] AT 2034, WAITING TRANSPORT TO SEND DOWNSTAIRS. NO OTHER CONCERNS, WILL CONTINUE TO MONITOR.
[2018-10-23 21:54] VITALS: BP 142/56
--- NOTE | 2018-10-24 04:03 | NUR ---
Pt transferred from 4E approx 2100. A/OX4,oriented to the room and made comfortable. Up with SBA d/t multiple lines,encouraged to use BSC at night as she easily gets fatigued and doing so. Also pt been NPO since midnight for possible M2 Capsule,aware of situation but agreeable to follow POC just incase it's approved by insurance. Protonix IV infusing via Left wrist PIV without any problems. VSS,O2 on @4L/NC. Encouraged to call for assistance and doing so.Resting quietly at this time eyes closed no distress noted.Will continue to monitor pt.
[2018-10-24 07:16] LABS: CALCIUM 9.2 mg/dL (8.5-10.1); CREATININE 1.2 mg/dL (0.6-1.0); POTASSIUM 3.8 mmol/L (3.5-5.1)
[2018-10-24 08:30] LABS: HEMATOCRIT 24.2 % (37.0-47.0); HEMOGLOBIN 7.7 gm/dL (12.0-15.0); MCH 28.2 pg (26.0-34.0); MCHC 31.7 g/dL (28.0-37.0); RBC 2.72 mil/uL (4.20-5.00); RDW 17.5 % (10.5-14.5); WBC 5.6 thou/uL (4.0-11.0)
[2018-10-24 11:59] LABS: HEMOGLOBIN 7.6 gm/dL (12.0-15.0)
--- NOTE | 2018-10-24 12:01 | NUR ---
PATIENT CARE IS ASSUMED AT 0715.PATIENT IS ALERT AND ORIENTED X4.PATIENT IS RESTING IN BED.PATIENT HAS NO COMPLAINS OF PAIN AT THIS TIME.PT IS NPO, ON HER OWN ACCORD JUST IN CASE SHE IS ABLE TO HAVE GI TEST DONE.VITALS ARE STABLE.CALL LIGHT, PHONE, AND PERSONAL BELONGINGS ARE WITHIN REACH.
[2018-10-24 13:36] VITALS: BP 132/54
[2018-10-24] MEDS ORDERED: MELATONIN5 M1 PO (14:32)
== END 2018-10-24 17:58 | disposition home or self-care (01) | DRG 377 ==
LOC: ER 15:07 → EROBS 19:07 → 4E 19:07 → SICU 10-23 21:36 → ENTRNSPT 10-24 17:31 → SICU 10-24 17:58
PROVIDERS: Internal Medicine Gastroenterology; Nurse Practitioner; Nurse Practitioner Acute Care; Physician Assistant; ADMIT Internal Medicine
PROC: 30233N1 Transfusion of Nonautologous Red Blood Cells into Peripheral Vein, Percutaneous Approach (ICD-10-PCS; principal; 2018-10-23)
DX: K92.2 Gastrointestinal hemorrhage, unspecified (principal); I50.33 Acute on chronic diastolic (congestive) heart failure; N17.9 Acute kidney failure, unspecified; D62 Acute posthemorrhagic anemia; J96.11 Chronic respiratory failure with hypoxia; J98.11 Atelectasis; I13.0 Hypertensive heart and chronic kidney disease with heart failure and stage 1 through stage 4 chronic kidney disease, or unspecified chronic kidney disease; E78.5 Hyperlipidemia, unspecified; I27.20 Pulmonary hypertension, unspecified; E11.22 Type 2 diabetes mellitus with diabetic chronic kidney disease; E03.9 Hypothyroidism, unspecified; N18.3 Chronic kidney disease, stage 3 (moderate); I48.2 Chronic atrial fibrillation; J84.10 Pulmonary fibrosis, unspecified; K21.9 Gastro-esophageal reflux disease without esophagitis; M62.84 Sarcopenia; E53.8 Deficiency of other specified B group vitamins; Z79.52 Long term (current) use of systemic steroids; Z95.0 Presence of cardiac pacemaker; Z90.49 Acquired absence of other specified parts of digestive tract; Z98.49 Cataract extraction status, unspecified eye; Z85.3 Personal history of malignant neoplasm of breast; Z90.11 Acquired absence of right breast and nipple; Z88.8 Allergy status to other drugs, medicaments and biological substances; Z87.891 Personal history of nicotine dependence; Z86.010 Personal history of colon polyps
CPT/HCPCS: 10084; 15002

== ENCOUNTER → 2018-10-25 | Outpatient (CLI) | payer OTHER, MEDICARE ==
[~2018-10-25] MED LIST changes: +ALBUTEROL2.5 MG/31 INH; +ELIQUIS5 MG PO; +TRAZODONE HCL50 MG PO; +TRELEGY ELLIPT1 EACH INH; +UNICOMPLEX M TA1 TA1 PO; +VITAMIN B-12500 MCG PO
== END | disposition home or self-care (01) ==
LOC: GI 07:43
DX: D64.9 Anemia, unspecified (principal); K92.2 Gastrointestinal hemorrhage, unspecified; I11.0 Hypertensive heart disease with heart failure; I50.9 Heart failure, unspecified; E11.9 Type 2 diabetes mellitus without complications; I73.9 Peripheral vascular disease, unspecified; K21.9 Gastro-esophageal reflux disease without esophagitis; Z98.0 Intestinal bypass and anastomosis status; Z85.3 Personal history of malignant neoplasm of breast; Z86.711 Personal history of pulmonary embolism; Z79.01 Long term (current) use of anticoagulants; Z87.19 Personal history of other diseases of the digestive system; Z98.890 Other specified postprocedural states; Z79.899 Other long term (current) drug therapy